=== PATIENT | female | born 1990 | race Two or more races ===

== ENCOUNTER 2017-09-25 11:30 | Observation (INO) | payer MEDICAID ==
[~2017-09-25 11:30] MED LIST: PRENPAK56 PO
[2017-09-25 13:33] LABS: Basophils # (auto) 0 uL; Basophils % (auto) 0.3 % (0.0-2.0); Eosinophils # (auto) 0.1 uL; Hematocrit 35.5 % (36.0-46.0); Hemoglobin 11.8 g/dL (12.2-16.2); Lymphocytes # (auto) 1.7 uL; Lymphocytes % (auto) 22.7 % (10.0-50.0); Mean Corpuscular Hemoglobin 28.1 pg (28.0-32.0); Mean Corpuscular Hgb Conc. 33.3 g/dL (32.0-36.0); Mean Corpuscular Volume 84.2 fL (80.0-100.0); Monocytes # (auto) 0.6 uL; Monocytes % (auto) 7.6 % (0.0-12.0); Neutrophils # (auto) 5.1 uL; Neutrophils % (auto) 68.4 % (37.0-80.0); Platelet Count (auto) 129 10^3/uL (140-450); Red Blood Cells 4.21 10^6/uL (4.0-5.20); Red Cell Distribution Width 15.2 % (11.8-14.3); White Blood Cell 7.4 10^3/uL (4.4-10.8)
[2017-09-25 13:37] LABS: Urine Bacteria FEW /hpf (None Seen); Urine Blood Negative /uL (Negative); Urine Mucus FEW (None Seen); Urine Specific Gravity 1.018 (1.001-1.035); Urine WBC 2 /hpf (0 - 5)
[2017-09-25 13:44] LABS: INR 0.92 (0.9-1.15); Partial Thromboplastin Time 25.3 sec (22.64-33.71)
[2017-09-25 13:51] LABS: Albumin 2.7 g/dL (3.4-5.0); Bilirubin, Total 0.3 mg/dL (0.2-1.0); Calcium 8.9 mg/dL (8.5-10.1); Total Protein 7.1 g/dL (6.4-8.2)
== END 2017-09-25 14:30 | disposition home or self-care (01) | DRG 560 ==
LOC: LDRP 11:30
PROVIDERS: ADMIT Obstetrics & Gynecology; ATTEND Obstetrics & Gynecology
DX: O82 Encounter for cesarean delivery without indication (principal); O99.344 Other mental disorders complicating childbirth; F41.9 Anxiety disorder, unspecified; O36.8130 Decreased fetal movements, third trimester, not applicable or unspecified; O62.9 Abnormality of forces of labor, unspecified; Z3A.39 39 weeks gestation of pregnancy
CPT/HCPCS: 36415; 59025; 76805; 76818; 80053; 81001; 81002; 84550; 85025; 85610; 85730; 86850; 86900; 86901; G0378

== ENCOUNTER 2017-09-26 03:06 | Inpatient (IN) | payer MEDICAID ==
[2017-09-26] VITALS (15 sets, daily range): BP systolic 104–131; BP diastolic 57–86
[~2017-09-26] VITALS: Ht 157.5 cm; Wt 78.5 kg
[2017-09-26] MEDS ORDERED: LACTATED RINGER'S 1,000 ML IV SCH (03:16)
[2017-09-26 03:48] LABS: Urine WBC None Seen /hpf (0 - 5)
[2017-09-26 04:06] LABS: Basophils # (auto) 0 uL; Basophils % (auto) 0.4 % (0.0-2.0); Eosinophils # (auto) 0.1 uL; Eosinophils % (auto) 0.7 % (0.0-7.0); Hematocrit 35.9 % (36.0-46.0); Hemoglobin 11.8 g/dL (12.2-16.2); Lymphocytes # (auto) 2.1 uL; Lymphocytes % (auto) 25.2 % (10.0-50.0); Mean Corpuscular Hemoglobin 27.6 pg (28.0-32.0); Mean Corpuscular Volume 83.9 fL (80.0-100.0); Monocytes # (auto) 0.6 uL; Monocytes % (auto) 6.8 % (0.0-12.0); Neutrophils # (auto) 5.6 uL; Neutrophils % (auto) 66.9 % (37.0-80.0); Nucleated Red Blood Cells % 0.1 %; Platelet Count (auto) 128 10^3/uL (140-450); Red Blood Cells 4.28 10^6/uL (4.0-5.20); Red Cell Distribution Width 15.2 % (11.8-14.3); White Blood Cell 8.4 10^3/uL (4.4-10.8)
[2017-09-26 04:18] LABS: Urine Amorphous Crystal MANY /hpf (None Seen); Urine Bacteria NONE SEEN /hpf (None Seen); Urine Blood Negative /uL (Negative); Urine Mucus FEW (None Seen); Urine Specific Gravity 1.016 (1.001-1.035)
[2017-09-26 04:23] LABS: Alcohol, Urine < 3.0 mg/dL (0-5); Amphetamine Screen, Urine NEGATIVE (NEGATIVE); Barbiturate Scree,Urine NEGATIVE (NEGATIVE); Benzodiazephine Screen, Urine NEGATIVE (NEGATIVE); Cannabinoid Screen, Urine NEGATIVE (NEGATIVE); Cocaine Screen, Urine NEGATIVE (NEGATIVE); Opiate Scree,Urine NEGATIVE (NEGATIVE); Phencyclidine Screen, Urine NEGATIVE (NEGATIVE)
[2017-09-26 04:31] LABS: Albumin 2.8 g/dL (3.4-5.0); BUN/Creatinine Ratio 12.8; Bilirubin, Total 0.6 mg/dL (0.2-1.0); Potassium 3.6 mmol/L (3.5-5.1); Total Protein 7.1 g/dL (6.4-8.2); Uric Acid 4.6 mg/dL (2.6-6.0)
[2017-09-26 04:43] LABS: INR 0.93 (0.9-1.15); Partial Thromboplastin Time 25.6 sec (22.64-33.71); Prothrombin Time 10.1 sec (9.37-12.3)
[2017-09-26] MEDS ORDERED: SODIUM CHLORIDE LOCK 10 ML ONE (07:28)
[2017-09-26] MEDS ORDERED: MORPHINE SULF(PF) 0.5MG/ML 10ML VIAL ONE (07:28)
[2017-09-26] MEDS ORDERED: ePHEDrine SULFATE 50 MG/ML AMP ONE (07:28)
[2017-09-26] MEDS ORDERED: OXYTOCIN 10 UNIT/ML 10ML VIAL ONE ×2 (07:41→08:31)
[2017-09-26] MEDS ORDERED: ceFAZolin 1GM VL ONE (07:42)
[2017-09-26] MEDS ORDERED: METOCLOPRAMIDE HCL 5MG/ml INJ 2ml VIAL ONE (08:04)
[2017-09-26] MEDS ORDERED: LACT. RINGERS/OXYTOCIN 20UNITS 1,000 ML IV SCH (08:10)
[2017-09-26] MEDS ORDERED: ONDANSETRON HCL 4 MG/2 ML VIAL IV PRN ×2 (08:15→09:00)
[2017-09-26] MEDS ORDERED: ceFAZolin 1GM/50ML 50 ML IV SCH (08:15)
[2017-09-26] MEDS ORDERED: KETOROLAC TROMETH 30 MG/ML 1ML VIAL IV PRN (09:00)
[2017-09-26] MEDS ORDERED: NALOXONE HCL 0.4 MG/ML VIAL IV PRN ×2 (09:00)
[2017-09-26] MEDS ORDERED: ONDANSETRON HCL 4 MG/2 ML VIAL IV ONE (09:00)
[2017-09-26] MEDS ORDERED: diphenhdrAMINE HCL 50 MG/1 ML VL IV PRN (09:00)
[2017-09-26] MEDS ORDERED: HYDROmorphone HCL 2 MG/ML VL IV PRN (09:00)
[2017-09-26] MEDS: ceFAZolin 1GM/50ML 50 ML IV SCH ×2 (13:12→20:55)
[2017-09-26] MEDS: KETOROLAC TROMETH 30 MG/ML 1ML VIAL IV PRN ×2 (14:40→22:35)
[2017-09-26] MEDS ORDERED: LACTATED RINGER'S 1,000 ML IV ONE (17:45)
[2017-09-26] MEDS: MORPHINE SULF INJ 2 MG/ML SYRINGE 1ML IV PRN (18:25)
[2017-09-26 20:41] LABS: Basophils # (auto) 0 uL; Basophils % (auto) 0.2 % (0.0-2.0); Eosinophils # (auto) 0 uL; Eosinophils % (auto) 0.5 % (0.0-7.0); Hematocrit 31.1 % (36.0-46.0); Hemoglobin 10.5 g/dL (12.2-16.2); Lymphocytes # (auto) 1.2 uL; Lymphocytes % (auto) 11.7 % (10.0-50.0); Mean Corpuscular Hemoglobin 28.4 pg (28.0-32.0); Mean Corpuscular Hgb Conc. 33.8 g/dL (32.0-36.0); Mean Corpuscular Volume 84.1 fL (80.0-100.0); Monocytes # (auto) 0.5 uL; Monocytes % (auto) 5.2 % (0.0-12.0); Neutrophils # (auto) 8.6 uL; Neutrophils % (auto) 82.4 % (37.0-80.0); Platelet Count (auto) 123 10^3/uL (140-450); Red Blood Cells 3.69 10^6/uL (4.0-5.20); Red Cell Distribution Width 14.9 % (11.8-14.3); White Blood Cell 10.5 10^3/uL (4.4-10.8)
[2017-09-26 21:19] LABS: BUN/Creatinine Ratio 17.1
[2017-09-26 21:20] LABS: Albumin 2.1 g/dL (3.4-5.0); Bilirubin, Total 0.7 mg/dL (0.2-1.0); Calcium 8.3 mg/dL (8.5-10.1); Total Protein 5.6 g/dL (6.4-8.2)
[2017-09-27] VITALS (7 sets, daily range): BP systolic 103–118; BP diastolic 61–80
[2017-09-27] MEDS: MORPHINE SULF INJ 2 MG/ML SYRINGE 1ML IV PRN (04:50)
[2017-09-27] MEDS: ceFAZolin 1GM/50ML 50 ML IV SCH (04:57)
[2017-09-27] MEDS: KETOROLAC TROMETH 30 MG/ML 1ML VIAL IV PRN (06:06)
[2017-09-27] MEDS ORDERED: guaiFENesin-DM 100/10mg/5ml SYR GT PRN (07:00)
[2017-09-27] MEDS ORDERED: BISACODYL 10 MG RECT SUPP PR PRN (08:00)
[2017-09-27] MEDS: guaiFENesin-DM 100/10mg/5ml SYR PO PRN ×2 (09:14→21:49)
[2017-09-27] MEDS ORDERED: DOCUSATE SOD 100 MG CAP PO ONE (09:21)
[2017-09-27] MEDS ORDERED: DOCUSATE CALCIUM 240 MG CAP PO ONE (09:21)
[2017-09-27] MEDS ORDERED: HYDROcodone-ACET 5/325MG TAB ONE (09:25)
[2017-09-27] MEDS: HYDROcodone-ACET 5/325MG TAB PO PRN ×2 (09:33→21:42)
[2017-09-27] MEDS: DOCUSATE CALCIUM 240 MG CAP PO SCH (09:33)
[2017-09-27] MEDS: DOCUSATE SOD 100 MG CAP PO SCH ×2 (09:33→21:45)
[2017-09-27 12:23] LABS: Basophils # (auto) 0 uL; Basophils % (auto) 0.3 % (0.0-2.0); Eosinophils # (auto) 0 uL; Eosinophils % (auto) 0.4 % (0.0-7.0); Hemoglobin 10.1 g/dL (12.2-16.2); Lymphocytes # (auto) 1.5 uL; Lymphocytes % (auto) 13.1 % (10.0-50.0); Mean Corpuscular Hemoglobin 28.3 pg (28.0-32.0); Mean Corpuscular Hgb Conc. 33.8 g/dL (32.0-36.0); Mean Corpuscular Volume 83.7 fL (80.0-100.0); Monocytes # (auto) 0.5 uL; Monocytes % (auto) 4.8 % (0.0-12.0); Neutrophils % (auto) 81.4 % (37.0-80.0); Platelet Count (auto) 139 10^3/uL (140-450); Red Blood Cells 3.58 10^6/uL (4.0-5.20); Red Cell Distribution Width 15.3 % (11.8-14.3); White Blood Cell 11.1 10^3/uL (4.4-10.8)
[2017-09-27] MEDS: IBUPROFEN 800 MG TAB PO PRN (13:50)
[2017-09-27 13:54] LABS: Potassium 3.7 mmol/L (3.5-5.1)
[2017-09-27 13:55] LABS: Albumin 2.3 g/dL (3.4-5.0); BUN/Creatinine Ratio 15.6; Bilirubin, Total 0.6 mg/dL (0.2-1.0); Calcium 8.9 mg/dL (8.5-10.1); Total Protein 5.9 g/dL (6.4-8.2)
[2017-09-27] MEDS: SIMETHICONE 80 MG CHEWABLE TABLET PO SCH ×3 (14:00→21:46)
[2017-09-27 17:42] LABS: INR 0.94 (0.9-1.15); Partial Thromboplastin Time 26.9 sec (22.64-33.71); Prothrombin Time 10.2 sec (9.37-12.3)
[2017-09-28] MEDS: HYDROcodone-ACET 5/325MG TAB PO PRN (02:27)
[2017-09-28 03:00] VITALS: BP 115/72
[2017-09-28] MEDS: SIMETHICONE 80 MG CHEWABLE TABLET PO SCH ×4 (06:00→21:42)
[2017-09-28 07:00] VITALS: BP 106/60
[2017-09-28 09:21] LABS: Albumin 2.3 g/dL (3.4-5.0); Bilirubin, Direct 0.2 mg/dL (0-0.2); Bilirubin, Total 0.4 mg/dL (0.2-1.0); Total Protein 6.2 g/dL (6.4-8.2)
[2017-09-28 10:02] LABS: Hepatitis B Surface Antigen Negative (Negative)
[2017-09-28] MEDS: DOCUSATE CALCIUM 240 MG CAP PO SCH (10:05)
[2017-09-28] MEDS: DOCUSATE SOD 100 MG CAP PO SCH ×2 (10:05→21:26)
[2017-09-28 10:12] LABS: Hepatitis C Antibody Negative (Negative)
[2017-09-28 10:13] LABS: Hepatitis B Core IgM Negative
[2017-09-28 10:14] LABS: Hepatitis A Ab IgM Negative
[2017-09-28] MEDS: IBUPROFEN 800 MG TAB PO PRN ×2 (10:20→21:26)
[2017-09-28 11:00] VITALS: BP 99/63
[2017-09-28 11:26] LABS: % Iron Saturation 5.3 % (15-50)
[2017-09-28 15:00] VITALS: BP 103/52
[2017-09-28 19:00] VITALS: BP 114/72
[2017-09-28 23:17] VITALS: BP 118/70
[2017-09-29 04:00] VITALS: BP 114/60
[2017-09-29] MEDS: IBUPROFEN 800 MG TAB PO PRN (04:22)
[2017-09-29] MEDS: SIMETHICONE 80 MG CHEWABLE TABLET PO SCH ×2 (06:02→12:00)
[2017-09-29 06:46] LABS: Basophils # (auto) 0 uL; Basophils % (auto) 0.5 % (0.0-2.0); Eosinophils # (auto) 0.3 uL; Eosinophils % (auto) 3.2 % (0.0-7.0); Hematocrit 29.8 % (36.0-46.0); Hemoglobin 10.1 g/dL (12.2-16.2); Lymphocytes # (auto) 2.2 uL; Lymphocytes % (auto) 23.9 % (10.0-50.0); Mean Corpuscular Hemoglobin 28.5 pg (28.0-32.0); Mean Corpuscular Hgb Conc. 33.8 g/dL (32.0-36.0); Mean Corpuscular Volume 84.4 fL (80.0-100.0); Monocytes # (auto) 0.6 uL; Monocytes % (auto) 6.1 % (0.0-12.0); Neutrophils # (auto) 6.2 uL; Neutrophils % (auto) 66.3 % (37.0-80.0); Platelet Count (auto) 195 10^3/uL (140-450); Red Blood Cells 3.53 10^6/uL (4.0-5.20); Red Cell Distribution Width 15.3 % (11.8-14.3); White Blood Cell 9.3 10^3/uL (4.4-10.8)
[2017-09-29 07:00] VITALS: BP 108/67
[2017-09-29 07:00] LABS: Albumin 2.4 g/dL (3.4-5.0); BUN/Creatinine Ratio 21.1; Calcium 8.8 mg/dL (8.5-10.1); Potassium 3.9 mmol/L (3.5-5.1)
[2017-09-29 07:03] LABS: Bilirubin, Total 0.3 mg/dL (0.2-1.0); Total Protein 6.4 g/dL (6.4-8.2)
[2017-09-29] MEDS: guaiFENesin-DM 100/10mg/5ml SYR PO PRN (08:06)
[2017-09-29] MEDS: HYDROcodone-ACET 5/325MG TAB PO PRN (08:07)
[2017-09-29] MEDS: DOCUSATE SOD 100 MG CAP PO SCH (10:00)
[2017-09-29] MEDS: DOCUSATE CALCIUM 240 MG CAP PO SCH (10:00)
[2017-09-29 11:00] VITALS: BP 112/72
== END 2017-09-29 11:45 | disposition home or self-care (01) | DRG 540 ==
LOC: LDRP 03:06
PROVIDERS: ADMIT Obstetrics & Gynecology; ATTEND Obstetrics & Gynecology
PROC: 10D00Z1 Extraction of Products of Conception, Low, Open Approach (ICD-10-PCS; principal; 2017-09-26 07:29)
DX: O36.60X0 Maternal care for excessive fetal growth, unspecified trimester, not applicable or unspecified (principal); O26.62 Liver and biliary tract disorders in childbirth; K76.89 Other specified diseases of liver; O34.219 Maternal care for unspecified type scar from previous cesarean delivery; R79.89 Other specified abnormal findings of blood chemistry; O14.24 HELLP syndrome, complicating childbirth; Z37.0 Single live birth; Z3A.40 40 weeks gestation of pregnancy
CPT/HCPCS: 36415; 51702; 59025; 76705; 80053; 80074; 80076; 80307; 81001; 81002; 82248; 82390; 83540; 83550; 84550; 85025; 85384; 85610; 85730; 86038; 86850; 86900; 86901; 96361; 96365; 96366; 96374; 96375; J0690; J1885; J2590

== ENCOUNTER 2017-10-04 01:12 | Emergency (ER) | payer MEDICAID ==
[~2017-10-04] VITALS: Ht 157.5 cm; Wt 65.8 kg
[2017-10-04 01:24] VITALS: BP 113/74
[2017-10-04] MEDS ORDERED: ONDANSETRON HCL 4 MG/2 ML VIAL IM ONE ×2 (03:45→04:00)
[2017-10-04] MEDS ORDERED: HYDROmorphone HCL 2 MG/ML VL IM ONE (03:45)
[2017-10-04] MEDS ORDERED: MORPHINE SULFATE 10 MG/ML INJ 1ML SDV IM ONE (04:00)
== END 2017-10-04 04:35 | disposition home or self-care (01) ==
LOC: ER 01:15
DX: G89.18 Other acute postprocedural pain (principal); R10.32 Left lower quadrant pain; N39.0 Urinary tract infection, site not specified
CPT/HCPCS: 76705; 96372; 99284; J1170; J2270; J2405